=== PATIENT | female | born 1960 | race Caucasian/White ===

== ENCOUNTER 2019-02-21 14:15 | Outpatient (CLI) | payer OTHER ==
--- NOTE | 2019-02-21 15:45 | MMO ---
Right Breast MAMMO Unilat Diag DDI RT+PERICO. CLINICAL HISTORY: Patient is 58 years old and is seen for additional evaluation requested from prior study. VIEWS: The views performed were: right craniocaudal spot compression with tomosynthesis; right mediolateral oblique spot compression with tomosynthesis; and right mediolateral with tomosynthesis. FILMS COMPARED: The present examination has been compared to prior imaging studies performed at [facility] on 02/14/2019, and at [facility] on 06/04/2006 and 02/21/2019. MAMMOGRAM FINDINGS: The breast is almost entirely fat. The nodular density in the right breast persists and is likley the lymph node seen on US. IMPRESSION: FINDING IN THE RIGHT BREAST IS PROBABLY BENIGN. FOLLOW-UP IN 6 MONTHS IS RECOMMENDED. THE RESULTS OF THIS EXAM WERE SENT TO THE PATIENT. ACR BI-RADS Category 3 - Probably benign finding - short interval follow-up suggested. [facility] will notify the patient of the need for additional imaging services. MAMMOGRAPHY NOTE: 1. A negative mammogram report should not delay a biopsy if a dominant of clinically suspicious mass is present. 2. Approximately 10% to 15% of breast cancers are not detected by mammography. 3. Adenosis and dense breasts may obscure an underlying neoplasm.
--- NOTE | 2019-02-21 15:56 | ULT ---
RIGHT BREAST ULTRASOUND: Date: 02/21/19 HISTORY: Abnormal mammogram. FINDINGS: Correlation is made with mammograms of 02/14/19 and today. There is a hypoechoic nodule measuring 1.4 x 1.0 cm with echogenic hilum at the retroareolar aspect o f the right 9 o'clock position of the right breast consistent with an intramammary lymph node, likely corresponding to the mammographic finding. IMPRESSION: BI-RADS Category 3 - Probably benign findings. 6 month follow-up right diagnostic mammogram and ultra sound should be performed. The facility will notify patient of need for additional imaging services. POS: OFF
== END 2019-02-21 14:16 | disposition home or self-care (01) ==
LOC: BICMAMMO 14:15
PROVIDERS: ATTEND Obstetrics & Gynecology
DX: R92.2 Inconclusive mammogram (principal)
CPT/HCPCS: G0279